=== PATIENT | female | born 1945 | race Caucasian/White ===

== ENCOUNTER 2024-12-12 16:01 | Emergency (ER) | payer OTHER ==
[2024-12-12] MEDS ORDERED: AMLODIPINE BESYL5 MG PO (16:08)
[2024-12-12] MEDS ORDERED: MEMANTINE HCL10 MG PO (16:09)
[2024-12-12] MEDS ORDERED: ROSUVASTATIN CA20 MG PO (16:09)
[2024-12-12] MEDS ORDERED: ASPIRIN81 M3 PO (16:10)
[2024-12-12] MEDS ORDERED: SODIUM CHLORIDE 0.9% 100 ML BAG IV ONE (16:30)
[2024-12-12] MEDS ORDERED: IOHEXOL 350 MG/ML 100 ML VIAL IV ONE ×2 (16:30→16:57)
[2024-12-12] MEDS ORDERED: SODIUM CHLORIDE 0.9% 100 ML IV ONE (16:57)
[2024-12-12 17:20] LABS: BASO # 0.0 10*3/uL (0.0-0.1); BASO % 0.4 % (0.0-1.0); EOS # 0.0 10*3/uL (0.0-0.4); EOS % 0.1 % (1.0-4.0); MEAN CELL VOLUME 94.6 fl (81.0-99.0); MEAN CORPUSCULAR HGB 31.0 pg (27.0-31.0); MEAN PLATELET VOLUME 9.9 fl (9.6-12.3); MONO # 0.3 10*3/uL (0.1-1.0); MONO % 3.2 % (3.0-9.0); NEUT # 8.4 10*3/uL (2.3-7.9); NEUT % 88.8 % (47.0-73.0); NUCLEATED RED BLOOD CELL 0.0 % (0.0-0.0); NUCLEATED RED BLOOD CELL 0.0 10*3/uL (0.0-0.0); PLATELET COUNT AUTOMATED 175 10*3/uL (130-400); RED CELL DISTRI WIDTH 13.1 % (0-14.5)
[2024-12-12 17:24] LABS: BILIRUBIN Negative (Negative); BLOOD Negative (Negative); CLARITY Cloudy (Clear); COLOR Yellow (Yellow); KETONE Trace (Negative); LEUKO ESTERASE Negative (Negative); NITRITE Negative (Negative); SPECIFIC GRAVITY 1.020 (1.001-1.030); UROBILINOGEN 0.2 E.U./dl (0.0-1.0)
[2024-12-12 17:27] LABS: PH 8.5 (4.5-8.0)
[2024-12-12 17:30] LABS: URINE AMPHETAMINES Negative (1000ng/ml); URINE BARBITURATES Negative (200ng/ml); URINE BENZODIAZEPINES Negative (200ng/ml); URINE CANNABINOIDS (THC) Negative (50ng/ml); URINE COCAINE Negative (300ng/ml); URINE METHADONE Negative (300ng/ml); URINE OPIATES Negative (300ng/ml); URINE PHENCYCLIDINE Negative (25ng/ml)
[2024-12-12 17:33] LABS: ACT PARTIAL THROMBO TIME 23.4 SECONDS (20.0-32.1)
[2024-12-12 17:36] LABS: WBC 0-2 wbc/hpf (0-5)
[2024-12-12 17:37] LABS: BACTERIA 2+
[2024-12-12 17:52] LABS: BUN 11 mg/dl (9-23); SGPT/ALT 8 U/L (5-49)
== END 2024-12-12 19:19 | disposition home or self-care (01) ==
LOC: ED 16:01
PROVIDERS: Internal Medicine
DX: G45.9 Transient cerebral ischemic attack, unspecified (principal); H81.10 Benign paroxysmal vertigo, unspecified ear; Z79.82 Long term (current) use of aspirin; Z79.899 Other long term (current) drug therapy